=== PATIENT | female | born 1940 | race Caucasian/White ===

== ENCOUNTER → 2017-07-11 | Outpatient (CLI) | payer MEDICARE ==
[~2017-07-11] MED LIST: AMLO10TA2 PO; CA C1TAB39 PO; CALC-126 PO; CHOL20002 PO; GLUC-121 PO; MULT-230 PO; MULT-658 PO; OMEG1CAP23 PO; TRIA1CAP3 PO; [UNRECOGNIZED DRUG - OTHER] PO; [UNRECOGNIZED DRUG - OTHER] PO; [UNRECOGNIZED DRUG - OTHER] PO
[2017-07-11 11:16] LABS: ALBUMIN 4.1 g/dL (3.4-5.0); CALCIUM 9.8 mg/dL (8.5-10.1); CHLORIDE 103 mmol/L (98-107)
[2017-07-11 11:20] LABS: ALANINE AMINOTRANSFERASE 25 U/L (12-78); ALKALINE PHOSPHATASE 77 U/L (45-117); BILIRUBIN,TOTAL 0.6 mg/dL (0.2-1.0); CREATININE 0.74 mg/dL (0.55-1.02); TOTAL PROTEIN 7.8 g/dL (6.4-8.2)
[2017-07-11 11:25] LABS: ANION GAP 6 mmol/L (5-15)
== END | disposition home or self-care (01) ==
LOC: STAR 09:55
PROVIDERS: ATTEND Obstetrics & Gynecology Female Pelvic Medicine and Reconstructive Surgery
DX: Z01.818 Encounter for other preprocedural examination (principal); N81.10 Cystocele, unspecified
CPT/HCPCS: 36415; 80053; 93005

== ENCOUNTER → 2018-05-19 | Outpatient (CLI) | payer MEDICARE ==
[~2018-05-19] MED LIST changes: -AMLO10TA2 PO; +AMLO10TA8 PO; -CHOL20002 PO; +CHOL200052 PO
== END | disposition home or self-care (01) ==
LOC: STAR 10:54
PROVIDERS: ATTEND Obstetrics & Gynecology Female Pelvic Medicine and Reconstructive Surgery
DX: Z01.818 Encounter for other preprocedural examination (principal); N81.10 Cystocele, unspecified; N81.6 Rectocele; R10.2 Pelvic and perineal pain
CPT/HCPCS: 93005

== ENCOUNTER 2018-05-26 05:35 | Day surgery (SDC) | payer MEDICARE ==
[~2018-05-26] VITALS: Ht 152.4 cm; Wt 55.9 kg
[2018-05-26] MEDS ORDERED: LACTATED RINGERS 1,000 ML IV SCH (06:11)
[2018-05-26 06:14] VITALS: BP 118/77
[2018-05-26] MEDS ORDERED: BUPIVACAINE/PF 0.25% ONE (06:56)
[2018-05-26] MEDS ORDERED: EPINEPHRINE 1 MG/ML, 1ML ONE (06:56)
[2018-05-26] MEDS ORDERED: NEOMY/POLYMYXIN B GU IRR. 1 ML ONE (06:56)
[2018-05-26] MEDS ORDERED: DEXAMETHASONE 4 MG/ML, 1ML ONE ×2 (07:28→07:42)
[2018-05-26] MEDS ORDERED: ONDANSETRON 2MG/ML, 2ML ONE ×2 (07:28→07:42)
[2018-05-26] MEDS ORDERED: FENTANYL PF 100 MCG/2ML ONE ×2 (07:28→08:50)
[2018-05-26] MEDS ORDERED: SCOPOLAMINE PATCH, 1.5MG PATCH.TD72 TD ONE (07:30)
[2018-05-26] MEDS ORDERED: ACETAMINOPHEN 500 MG TABLET PO ONE (07:30)
[2018-05-26] MEDS ORDERED: DIAZEPAM 5 MG TABLET PO ONE (07:30)
[2018-05-26] MEDS ORDERED: CEFAZOLIN 1,000 MG ONE ×2 (07:40→07:42)
[2018-05-26] MEDS ORDERED: PROPOFOL 10 MG/ML, 20ML ONE (08:02)
[2018-05-26] MEDS ORDERED: LIDOCAINE-MPF 2% ,5ML ONE (08:02)
[2018-05-26] MEDS ORDERED: OXYcodone 5 MG/5 ML ORAL.SOL UDC PO PRN (08:30)
[2018-05-26] MEDS ORDERED: LABETALOL 5MG/ML, 20ML IV PRN (08:30)
[2018-05-26] MEDS ORDERED: hydrALAzine 20 MG/ML, 1ML IV PRN (08:30)
[2018-05-26] MEDS ORDERED: MEPERIDINE/PF 25MG/0.5ML IVPush PRN (08:30)
[2018-05-26] MEDS ORDERED: HALOPERIDOL 5 MG/ML IV PRN (08:30)
[2018-05-26] MEDS ORDERED: MIDAZOLAM 1 MG/ML, 2ML IV PRN (08:30)
[2018-05-26] MEDS ORDERED: ONDANSETRON 2MG/ML, 2ML IV PRN (08:30)
[2018-05-26] MEDS ORDERED: PROMETHAZINE 25 MG SUPP PR PRN (08:30)
[2018-05-26] MEDS ORDERED: ALBUTEROL SULFATE 2.5 MG/3 ML NPPB PRN (08:30)
[2018-05-26] MEDS ORDERED: HYDROmorphone 2 MG/ML, 1ML IVPush PRN (08:30)
[2018-05-26] MEDS ORDERED: ONDANSETRON ODT 8 MG PO PRN (08:30)
[2018-05-26] MEDS ORDERED: DIAZEPAM 5 MG/ML, 2ML IVPush PRN (08:30)
[2018-05-26] MEDS ORDERED: PROMETHAZINE 25 MG/ML, 1ML IM PRN (08:30)
[2018-05-26] MEDS ORDERED: EPHEDRINE 50 MG/ML, 1ML IVPush PRN (08:30)
[2018-05-26] MEDS ORDERED: MORPHINE SULFATE 4 MG/ML, 1ML IVPush PRN (08:30)
[2018-05-26] MEDS ORDERED: OXYcodone 5 MG/5 ML ORAL.SOL UDC ONE (08:49)
[2018-05-26] MEDS ORDERED: MIDAZOLAM 1 MG/ML, 2ML ONE (08:49)
[2018-05-26] MEDS: FENTANYL PF 100 MCG/2ML IV PRN ×2 (08:51→09:10)
[2018-05-26] MEDS ORDERED: KETOROLAC 30 MG/1 ML IVPush PRN (10:00)
== END 2018-05-26 12:00 | disposition home or self-care (01) ==
LOC: OUT 05:35
PROVIDERS: ATTEND Obstetrics & Gynecology Female Pelvic Medicine and Reconstructive Surgery
DX: N81.89 Other female genital prolapse (principal); N39.46 Mixed incontinence; I10 Essential (primary) hypertension; Z87.39 Personal history of other diseases of the musculoskeletal system and connective tissue; Z98.890 Other specified postprocedural states; Z90.49 Acquired absence of other specified parts of digestive tract; Z90.710 Acquired absence of both cervix and uterus; N32.81 Overactive bladder
CPT/HCPCS: 57265; 57282; 57288; C1781; J0171; J0690; J1100; J1885; J2250; J2405; J2704; J3010; J3490; J7120

== ENCOUNTER → 2018-10-06 | Outpatient (CLI) | payer MEDICARE ==
[~2018-10-06] MED LIST changes: -MULT-230 PO; +MULT-806 PO
== END | disposition home or self-care (01) ==
LOC: STAR 08:58
PROVIDERS: ATTEND Orthopaedic Surgery
DX: Z01.818 Encounter for other preprocedural examination (principal); M25.572 Pain in left ankle and joints of left foot; M79.672 Pain in left foot; R94.31 Abnormal electrocardiogram [ECG] [EKG]
CPT/HCPCS: 93005

== ENCOUNTER 2019-08-25 10:10 | Outpatient (CLI) | payer MEDICARE ==
[2019-08-25] MEDS ORDERED: MULT-658 PO (11:13)
[2019-08-25] MEDS ORDERED: OMEG-14 PO (11:13)
[2019-08-25] MEDS ORDERED: CA C1TAB62 PO (11:13)
[2019-08-25] MEDS ORDERED: vitamin D PO (11:13)
[2019-08-28] MEDS ORDERED: BUPIVACAINE/PF 0.5% ONE (11:20)
[2019-08-28] MEDS ORDERED: LIDOCAINE 1%, 20ML ONE (11:21)
== END 2019-08-25 23:59 | disposition home or self-care (01) ==
LOC: STAR 10:10
PROVIDERS: ATTEND Orthopaedic Surgery
DX: Z01.818 Encounter for other preprocedural examination (principal); Z11.59 Encounter for screening for other viral diseases; S92.015D Nondisplaced fracture of body of left calcaneus, subsequent encounter for fracture with routine healing; M25.572 Pain in left ankle and joints of left foot; I51.7 Cardiomegaly; X58.XXXD Exposure to other specified factors, subsequent encounter
CPT/HCPCS: 93005; U0001